=== PATIENT | male | born 1970 | race Hispanic/Latino ===

== ENCOUNTER 2020-03-15 15:31 | Emergency (ER) | payer OTHER ==
[~2020-03-15] VITALS: Ht 165.1 cm; Wt 74.8 kg
[2020-03-15] MEDS ORDERED: DONNATAL/LIDOCAINE/MAALOX 30 ML SUSP PO ONE (16:15)
[2020-03-15] MEDS ORDERED: FAMOTIDINE 20 MG/2 ML VIAL IV STA (16:15)
[2020-03-15] MEDS ORDERED: MAGNESIUM/ALUMINUM/SIMETHICONE 30 ML UDC ONE (17:13)
[2020-03-15] MEDS ORDERED: LIDOCAINE VISC 2% SOLN 15 ML UDC ONE (17:13)
[2020-03-15] MEDS ORDERED: FAMOTIDINE 20 MG/2 ML VIAL IV ONE (17:13)
[2020-03-15] MEDS ORDERED: BELLADONNA ALK/PHENOBARBITAL 5 ML UDC ONE (17:13)
[2020-03-15 18:12] VITALS: BP 159/89
== END 2020-03-15 18:12 | disposition home or self-care (01) ==
LOC: FSED 16:17
DX: R07.9 Chest pain, unspecified (principal); R10.9 Unspecified abdominal pain
CPT/HCPCS: 71046; 74176; 80053; 81003; 82553; 84484; 85025; 93005; 99284